=== PATIENT | female | born 1955 | race African-American/Black ===

== ENCOUNTER 2021-09-09 08:04 | Inpatient (IN) | payer OTHER, MEDICAID ==
[~2021-09-09] VITALS: Ht 160 cm; Wt 73.0 kg
[~2021-09-09 08:04] MED LIST: APIX5TAB PO; ASPI-1073 PO; EMPA25TA PO; HYDR-4009 MT; METF-873 PO; NIFE90TA2 PO; NITR0.4T49 SL; OMEP20CA14 PO; ONDA4TAB5 PO
[2021-09-09 09:13] LABS: BASOPHILS % 0.4 % (0.0-2.0); EOSINOPHILS % 1.8 % (0.0-5.0); HEMATOCRIT. 39.4 % (36.0-48.0); HEMOGLOBIN. 13.1 g/dL (12.0-16.0); MEAN CORPUSCULAR HEMOGLOBIN 30.3 pg (28.0-32.0); MEAN CORPUSCULAR VOLUME 90.9 fL (81.0-99.0); MEAN PLATELET VOLUME 8.7 fl (7.4-10.4); MONOCYTES % 7.9 % (2.0-8.0); NEUTROPHILS % 71.9 % (40.0-76.0); PLATELET 249 x1000/uL (130-400); RED BLOOD CELL COUNT 4.34 mill/uL (4.2-5.4); RED CELL DISTRIBUTION WIDTH 14.8 % (11.6-14.6)
[2021-09-09 09:20] LABS: CHLORIDE 109 mEq/L (98-107)
[2021-09-09] MEDS ORDERED: HYDROCODONE/ACETAMINOPHEN 5/325MG TABLET PO ONE (10:30)
[2021-09-09 11:27] LABS: CLARITY URINE CLEAR (CLEAR); COLOR URINE YELLOW (YELLOW); KETONES URINE NEGATIVE (NEGATIVE); LEUKOCYTE ESTERASE URINE NEGATIVE (NEGATIVE); NITRITE URINE NEGATIVE (NEGATIVE); OCCULT BLOOD URINE TRACE (NEGATIVE); PROTEIN URINE NEGATIVE (NEGATIVE); SPECIFIC GRAVITY URINE 1.024 (1.005-1.030)
[2021-09-09] MEDS ORDERED: ASPIRIN 81MG TABLET PO ONE (11:30)
[2021-09-09] MEDS ORDERED: MORPHINE SULFATE 4 MG/ML CPJ (NOT FOR IM USE) IV STA (12:46)
[2021-09-09] MEDS ORDERED: ONDANSETRON HCL 4MG/2ML INJ IV STA (12:46)
[2021-09-09] MEDS ORDERED: ENOXAPARIN 60MG/0.6ML SYR SUBCUT NR (13:30)
[2021-09-09] MEDS: AMLODIPINE 5MG TABLET PO SCH (15:15)
[2021-09-09 17:09] VITALS: BP 156/61
[2021-09-09 17:40] VITALS: BP 156/61
[2021-09-09] MEDS: INSULIN LISPRO 100 UNITS/ML SUBCUT SCH ×2 (17:50→21:00)
[2021-09-09] MEDS ORDERED: IPRATROPIUM/ALBUTEROL 0.5-3(2.5)MG/3ML NEB HHN PRN (18:00)
[2021-09-09] MEDS ORDERED: DEXTROSE 50% WATER 50ML SYRINGE IV PRN (18:00)
[2021-09-09] MEDS ORDERED: CLONIDINE 0.1MG TABLET PO PRN (18:00)
[2021-09-09] MEDS: BLOOD SUGAR DIAGNOSTIC STRIP TEST SCH ×2 (18:07→21:49)
[2021-09-09] MEDS ORDERED: NALOXONE HCL 0.4MG/ML VIAL IV PRN (18:30)
[2021-09-09] MEDS: MORPHINE SULFATE 2 MG/ML CPJ (NOT FOR IM USE) IV PRN (18:42)
[2021-09-09 20:00] VITALS: BP 132/73
[2021-09-10] VITALS: BP 128/57
[2021-09-10] MEDS: MORPHINE SULFATE 2 MG/ML CPJ (NOT FOR IM USE) IV PRN ×5 (01:02→22:48)
[2021-09-10] MEDS: ONDANSETRON HCL 4MG/2ML INJ IV PRN ×2 (01:02→20:51)
[2021-09-10 04:00] VITALS: BP 143/68
[2021-09-10] MEDS ORDERED: METO-539 PO (04:03)
[2021-09-10] MEDS ORDERED: ATOR40TA70 PO (04:03)
[2021-09-10] MEDS ORDERED: FURO20TA4 PO (04:03)
[2021-09-10] MEDS: ACETAMINOPHEN 325MG TABLET PO PRN (05:02)
[2021-09-10] MEDS: SODIUM CHLORIDE 0.45% 1,000 ML IV SCH ×3 (05:03→22:48)
[2021-09-10] MEDS: BLOOD SUGAR DIAGNOSTIC STRIP TEST SCH ×4 (06:44→20:51)
[2021-09-10] MEDS: INSULIN LISPRO 100 UNITS/ML SUBCUT SCH ×4 (07:50→20:50)
[2021-09-10 08:05] VITALS: BP 128/50
[2021-09-10] MEDS: AMLODIPINE 5MG TABLET PO SCH (08:06)
[2021-09-10] MEDS: ASPIRIN 81MG TABLET PO SCH (08:06)
[2021-09-10 12:00] VITALS: BP 141/58
[2021-09-10] MEDS ORDERED: ENOXAPARIN 60MG/0.6ML SYR SUBCUT NR (14:30)
[2021-09-10 16:00] VITALS: BP 117/57
[2021-09-10 18:54] LABS: *AMPHETAMINES SCREEN URINE NEGATIVE (NEGATIVE); *BARBITURATES SCREEN URINE NEGATIVE (NEGATIVE); *BENZODIAZEPINES SCREEN URINE NEGATIVE (NEGATIVE); *COCAINE SCREEN URINE NEGATIVE (NEGATIVE); CANNABINOID URINE SCREEN NEGATIVE (NEGATIVE); METHADONE URINE SCREEN NEGATIVE (NEGATIVE); OPIATES URINE SCREEN PRESUMTIVE POSITIVE (NEGATIVE); PHENCYCLIDINE URINE SCREEN NEGATIVE (NEGATIVE)
[2021-09-10 19:42] LABS: BASOPHILS % 0.4 % (0.0-2.0); EOSINOPHILS % 1.7 % (0.0-5.0); HEMATOCRIT. 35.2 % (36.0-48.0); HEMOGLOBIN. 11.7 g/dL (12.0-16.0); LYMPHOCYTES % 29.2 % (20.0-50.0); MEAN CORPUSCULAR HEMOGLOBIN 30.1 pg (28.0-32.0); MEAN CORPUSCULAR VOLUME 90.2 fL (81.0-99.0); MEAN PLATELET VOLUME 8.5 fl (7.4-10.4); MONOCYTES % 10.2 % (2.0-8.0); NEUTROPHILS % 58.5 % (40.0-76.0); PLATELET 207 x1000/uL (130-400); RED CELL DISTRIBUTION WIDTH 14.7 % (11.6-14.6)
[2021-09-10 19:56] LABS: CHLORIDE 110 mEq/L (98-107)
[2021-09-10 20:00] VITALS: BP 125/95
[2021-09-10] MEDS: OMEPRAZOLE 20MG CAPSULE EXTENDED RELEASE PO SCH (22:47)
[2021-09-11] VITALS: BP 147/60
[2021-09-11 04:00] VITALS: BP 135/55
[2021-09-11] MEDS: MORPHINE SULFATE 2 MG/ML CPJ (NOT FOR IM USE) IV PRN ×2 (05:16→12:50)
[2021-09-11] MEDS: SODIUM CHLORIDE 0.45% 1,000 ML IV SCH ×3 (05:20→22:00)
[2021-09-11] MEDS: ONDANSETRON HCL 4MG/2ML INJ IV PRN ×2 (05:24→11:22)
[2021-09-11] MEDS: OMEPRAZOLE 20MG CAPSULE EXTENDED RELEASE PO SCH (06:45)
[2021-09-11] MEDS: BLOOD SUGAR DIAGNOSTIC STRIP TEST SCH ×4 (06:45→21:19)
[2021-09-11] MEDS ORDERED: NITROGLYCERIN 50MCG/ML 10ML VIAL (CATH LAB) IV ONE (07:32)
[2021-09-11] MEDS ORDERED: NICARDIPINE 100MCG/ML 10ML VIAL (CATH LAB) IV ONE (07:32)
[2021-09-11] MEDS: INSULIN LISPRO 100 UNITS/ML SUBCUT SCH ×4 (07:50→21:00)
[2021-09-11 08:18] VITALS: BP 156/64
[2021-09-11] MEDS: AMLODIPINE 5MG TABLET PO SCH ×2 (09:00→09:34)
[2021-09-11] MEDS: ASPIRIN 81MG TABLET PO SCH (09:34)
[2021-09-11 10:12] LABS: BASOPHILS % 0.3 % (0.0-2.0); EOSINOPHILS % 1.9 % (0.0-5.0); HEMATOCRIT. 38.1 % (36.0-48.0); HEMOGLOBIN. 12.7 g/dL (12.0-16.0); LYMPHOCYTES % 23.7 % (20.0-50.0); MEAN CORPUSCULAR HEMOGLOBIN 30.1 pg (28.0-32.0); MEAN CORPUSCULAR VOLUME 90.3 fL (81.0-99.0); MONOCYTES % 10.2 % (2.0-8.0); NEUTROPHILS % 63.9 % (40.0-76.0); PLATELET 193 x1000/uL (130-400); RED BLOOD CELL COUNT 4.22 mill/uL (4.2-5.4); RED CELL DISTRIBUTION WIDTH 14.7 % (11.6-14.6)
[2021-09-11] MEDS ORDERED: NITROGLYCERIN 0.4MG TABLET SL SL NR (10:15)
[2021-09-11 10:20] LABS: CHLORIDE 109 mEq/L (98-107)
[2021-09-11 10:28] LABS: HDL CHOLESTEROL 61 mg/dL (40-59); LDL CHOLESTEROL 74 mg/dL (5-100)
[2021-09-11] MEDS: ACETAMINOPHEN 325MG TABLET PO PRN (11:22)
[2021-09-11 11:56] VITALS: BP 160/62
[2021-09-11] MEDS ORDERED: HEPARIN 1000 UNITS/ML 10ML ONE (13:22)
[2021-09-11] MEDS ORDERED: IODIXANOL 320MG/ML 100 ML BOTTLE IV ONE (13:22)
[2021-09-11] MEDS ORDERED: FENTANYL CITRATE/PF 50MCG/ML 2ML VIAL ONE (13:22)
[2021-09-11] MEDS ORDERED: MIDAZOLAM HCL 2 MG/2 ML VIAL ONE (13:23)
[2021-09-11] MEDS ORDERED: LIDOCAINE HCL 1% 10 MG/ML 10ML VIAL ONE (13:23)
[2021-09-11] MEDS ORDERED: ATROPINE SULFATE 1MG/10ML SYR IV PRN (14:45)
[2021-09-11] MEDS ORDERED: ACETAMINOPHEN 325MG TABLET PO PRN (14:45)
[2021-09-11] MEDS ORDERED: SODIUM CHLORIDE 0.45% 1,000 ML IV ONE (15:00)
[2021-09-11 17:00] VITALS: BP 122/46
[2021-09-11] MEDS: HYDROCODONE/ACETAMINOPHEN 5/325MG TABLET PO PRN ×2 (18:02→22:14)
[2021-09-11 20:00] VITALS: BP 134/54
[2021-09-12] VITALS: BP 138/52
[2021-09-12] MEDS: HYDROCODONE/ACETAMINOPHEN 5/325MG TABLET PO PRN ×3 (02:22→12:17)
[2021-09-12 04:00] VITALS: BP 157/67
[2021-09-12] MEDS: SODIUM CHLORIDE 0.45% 1,000 ML IV SCH (06:00)
[2021-09-12] MEDS: BLOOD SUGAR DIAGNOSTIC STRIP TEST SCH ×2 (07:20→12:13)
[2021-09-12] MEDS: INSULIN LISPRO 100 UNITS/ML SUBCUT SCH ×2 (07:50→12:19)
[2021-09-12 08:00] VITALS: BP 145/46
[2021-09-12] MEDS: AMLODIPINE 5MG TABLET PO SCH (08:57)
[2021-09-12] MEDS: ASPIRIN 81MG TABLET PO SCH (08:57)
[2021-09-12] MEDS ORDERED: FAMOTIDINE 20MG TABLET PO SCH (09:00)
[2021-09-12 09:40] LABS: CHLORIDE 109 mEq/L (98-107)
[2021-09-12 12:00] VITALS: BP 153/60
[2021-09-12] MEDS ORDERED: APIXABAN 5 MG TABLET PO SCH (13:00)
[2021-09-12 13:57] VITALS: BP 153/60
[2021-09-12] MEDS ORDERED: APIX5TAB MT (14:27)
[2021-09-12] MEDS ORDERED: ATORVASTATIN CALCIUM 40MG TABLET PO SCH (21:00)
== END 2021-09-12 15:39 | disposition home or self-care (01) | DRG 287 ==
LOC: ER 08:24 → 6WST 12:30 → EDBEDREQTM 12:33 → EDBEDREQ 12:33 → ENRESERV 14:54
PROVIDERS: ADMIT Internal Medicine; ATTEND Internal Medicine
PROC: B2111ZZ Fluoroscopy of Multiple Coronary Arteries using Low Osmolar Contrast (ICD-10-PCS; principal; 2021-09-11)
PROC: 4A023N7 Measurement of Cardiac Sampling and Pressure, Left Heart, Percutaneous Approach (ICD-10-PCS; 2021-09-11)
DX: I25.10 Atherosclerotic heart disease of native coronary artery without angina pectoris (principal); I82.512 Chronic embolism and thrombosis of left femoral vein; E11.9 Type 2 diabetes mellitus without complications; E78.5 Hyperlipidemia, unspecified; I10 Essential (primary) hypertension; Z20.822 Contact with and (suspected) exposure to COVID-19; G89.29 Other chronic pain; D25.9 Leiomyoma of uterus, unspecified; K44.9 Diaphragmatic hernia without obstruction or gangrene; Z79.82 Long term (current) use of aspirin; Z79.84 Long term (current) use of oral hypoglycemic drugs; Z79.01 Long term (current) use of anticoagulants; Z88.8 Allergy status to other drugs, medicaments and biological substances; Z95.1 Presence of aortocoronary bypass graft; Z79.899 Other long term (current) drug therapy; Z80.42 Family history of malignant neoplasm of prostate; Z82.49 Family history of ischemic heart disease and other diseases of the circulatory system
CPT/HCPCS: 36415; 71045; 80048; 80053; 80061; 80305; 81003; 82962; 83036; 83880; 84484; 85025; 87426; 93005; 93459; 93970; 99291; C1769; C1887; C1893; J1644; J1650; J2250; J2270; J2405; J3010; J3490; Q9967

== ENCOUNTER 2021-10-10 10:13 | Inpatient (IN) | payer OTHER, MEDICAID ==
[~2021-10-10] VITALS: Ht 157.5 cm; Wt 70.8 kg
[~2021-10-10 10:13] MED LIST changes: -APIXABAN 5 MG TABLET PO SCH; -ASPIRIN 81MG EC TABLET PO SCH; -ATORVASTATIN CALCIUM 40MG TABLET PO SCH; -BLOOD SUGAR DIAGNOSTIC STRIP TEST SCH; -DEXTROSE 50% WATER 50ML SYRINGE IV PRN; -EMPA10TA MT; -FUROSEMIDE 20MG TABLET PO SCH; -HYDROCODONE/ACETAMINOPHEN 5/325MG TABLET PO PRN; -INSULIN LISPRO 100 UNITS/ML SUBCUT SCH; -METOPROLOL TARTRATE 50MG TABLET PO SCH; -MORPHINE SULFATE 2 MG/ML CPJ (NOT FOR IM USE) IV PRN; -NIFEDIPINE XL 90MG TAB PO SCH; -NITROGLYCERIN 0.4MG TABLET SL SL PRN; -NITROGLYCERIN 0.4MG TABLET SL SL SCH; -OMEP40CA20 MT; -OMEPRAZOLE 20MG CAPSULE EXTENDED RELEASE PO SCH; -ONDANSETRON HCL 4MG/2ML INJ IV PRN; -POTASSIUM CHLORIDE 20MEQ TABLET SR PO NR; -TIZANIDINE HCL 2MG TABLET PO SCH
[2021-10-10] MEDS ORDERED: MORPHINE SULFATE 4 MG/ML CPJ (NOT FOR IM USE) IV ONE ×2 (17:15→21:15)
[2021-10-10] MEDS ORDERED: MORPHINE SULFATE 4 MG/ML CPJ (NOT FOR IM USE) IV SCH (18:00)
[2021-10-10 18:03] LABS: BASOPHILS % 0.2 % (0.0-2.0); EOSINOPHILS % 0.5 % (0.0-5.0); HEMATOCRIT. 41.3 % (36.0-48.0); HEMOGLOBIN. 13.7 g/dL (12.0-16.0); LYMPHOCYTES % 20.2 % (20.0-50.0); MEAN CORPUSCULAR HEMOGLOBIN 30.5 pg (28.0-32.0); MEAN CORPUSCULAR VOLUME 92.2 fL (81.0-99.0); MEAN PLATELET VOLUME 8.3 fl (7.4-10.4); NEUTROPHILS % 70.1 % (40.0-76.0); PLATELET 307 x1000/uL (130-400); RED BLOOD CELL COUNT 4.48 mill/uL (4.2-5.4); RED CELL DISTRIBUTION WIDTH 15.6 % (11.6-14.6)
[2021-10-10 18:08] LABS: CHLORIDE 110 mEq/L (98-107)
[2021-10-10] MEDS ORDERED: ASPIRIN 325MG TABLET PO ONE (20:15)
[2021-10-10] MEDS ORDERED: NITROGLYCERIN 0.4MG TABLET SL SL ONE (20:15)
[2021-10-10] MEDS ORDERED: ASPIRIN 325MG TABLET PO NR (22:15)
[2021-10-10] MEDS ORDERED: NITROGLYCERIN 0.4MG TABLET SL SL NR (22:15)
[2021-10-11] MEDS ORDERED: HYDROCODONE/ACETAMINOPHEN 10/325MG TABLET PO PRN (02:45)
[2021-10-11] MEDS ORDERED: NITROGLYCERIN 0.4MG TABLET SL SL SCH (02:45)
[2021-10-11] MEDS ORDERED: POTASSIUM CHLORIDE 20MEQ TABLET SR PO NR (02:45)
[2021-10-11] MEDS ORDERED: NITROGLYCERIN 0.4MG TABLET SL SL PRN (03:00)
[2021-10-11] MEDS ORDERED: DEXTROSE 50% WATER 50ML SYRINGE IV PRN (03:00)
[2021-10-11] MEDS: MORPHINE SULFATE 4 MG/ML CPJ (NOT FOR IM USE) IV PRN ×4 (03:03→22:13)
[2021-10-11] MEDS: ONDANSETRON HCL 4MG TABLET PO SCH ×4 (03:08→22:02)
[2021-10-11 03:12] VITALS: BP 133/49
[2021-10-11] MEDS: BLOOD SUGAR DIAGNOSTIC STRIP TEST SCH ×4 (06:13→21:06)
[2021-10-11 08:00] VITALS: BP 126/65
[2021-10-11] MEDS ORDERED: NIFEDIPINE XL 90MG TAB PO SCH (09:00)
[2021-10-11] MEDS ORDERED: ATORVASTATIN CALCIUM 40MG TABLET PO SCH (09:00)
[2021-10-11] MEDS: ASPIRIN 81MG EC TABLET PO SCH (09:29)
[2021-10-11] MEDS: OMEPRAZOLE 20MG CAPSULE EXTENDED RELEASE PO SCH (09:29)
[2021-10-11] MEDS: FUROSEMIDE 20MG TABLET PO SCH (09:29)
[2021-10-11] MEDS: METFORMIN HCL 500MG TABLET PO SCH ×2 (09:29→18:16)
[2021-10-11] MEDS: APIXABAN 5 MG TABLET PO SCH ×2 (09:30→18:17)
[2021-10-11] MEDS: INSULIN LISPRO 100 UNITS/ML SUBCUT SCH ×4 (09:39→21:00)
[2021-10-11] MEDS: METOPROLOL TARTRATE 50MG TABLET PO SCH ×2 (10:25→18:18)
[2021-10-11 12:00] VITALS: BP 130/66
[2021-10-11 12:59] LABS: CREATINE KINASE MB FRACTION 2.1 ng/mL (0.5-3.6)
[2021-10-11 16:00] VITALS: BP 142/66
[2021-10-11] MEDS ORDERED: EMPA10TA MT (18:05)
[2021-10-11] MEDS ORDERED: OMEP40CA20 MT (18:08)
[2021-10-11] MEDS: NIFEDIPINE XL 90MG TAB PO SCH (18:17)
[2021-10-11 20:00] VITALS: BP 115/61
[2021-10-11] MEDS: ATORVASTATIN CALCIUM 40MG TABLET PO SCH (22:03)
[2021-10-11 23:37] VITALS: BP 116/58
[2021-10-12 04:00] VITALS: BP 98/59
[2021-10-12] MEDS: MORPHINE SULFATE 4 MG/ML CPJ (NOT FOR IM USE) IV PRN (05:09)
[2021-10-12] MEDS: INSULIN LISPRO 100 UNITS/ML SUBCUT SCH ×4 (07:25→20:37)
[2021-10-12] MEDS: BLOOD SUGAR DIAGNOSTIC STRIP TEST SCH ×4 (07:25→20:50)
[2021-10-12] MEDS: METOPROLOL TARTRATE 50MG TABLET PO SCH ×2 (08:23→16:28)
[2021-10-12] MEDS: NIFEDIPINE XL 90MG TAB PO SCH (08:23)
[2021-10-12 08:25] VITALS: BP 84/51
[2021-10-12] MEDS ORDERED: NALOXONE HCL 0.4MG/ML VIAL IV PRN (09:15)
[2021-10-12] MEDS ORDERED: HYDROCODONE/ACETAMINOPHEN 5/325MG TABLET PO PRN (09:15)
[2021-10-12 09:16] LABS: BASOPHILS % 0.4 % (0.0-2.0); EOSINOPHILS % 1.4 % (0.0-5.0); HEMATOCRIT. 40.9 % (36.0-48.0); HEMOGLOBIN. 13.5 g/dL (12.0-16.0); LYMPHOCYTES % 23.4 % (20.0-50.0); MEAN CORPUSCULAR HEMOGLOBIN 30.2 pg (28.0-32.0); MEAN CORPUSCULAR VOLUME 91.3 fL (81.0-99.0); MEAN PLATELET VOLUME 8.4 fl (7.4-10.4); MONOCYTES % 12.5 % (2.0-8.0); NEUTROPHILS % 62.3 % (40.0-76.0); PLATELET 317 x1000/uL (130-400); RED BLOOD CELL COUNT 4.48 mill/uL (4.2-5.4); RED CELL DISTRIBUTION WIDTH 15.8 % (11.6-14.6)
[2021-10-12 09:18] LABS: CHLORIDE 103 mEq/L (98-107)
[2021-10-12] MEDS ORDERED: SODIUM CHLORIDE 0.9% 500 ML IV ONE (09:30)
[2021-10-12 09:34] LABS: AMYLASE 53 IU/L (25-115)
[2021-10-12] MEDS: METFORMIN HCL 500MG TABLET PO SCH ×2 (09:34→16:52)
[2021-10-12] MEDS: FUROSEMIDE 20MG TABLET PO SCH (09:34)
[2021-10-12] MEDS: ASPIRIN 81MG EC TABLET PO SCH (09:34)
[2021-10-12] MEDS: APIXABAN 5 MG TABLET PO SCH ×2 (09:34→16:40)
[2021-10-12] MEDS: OMEPRAZOLE 20MG CAPSULE EXTENDED RELEASE PO SCH (09:34)
[2021-10-12] MEDS: DIPHENHYDRAMINE 25MG CAPSULE PO PRN ×2 (09:41→16:40)
[2021-10-12] MEDS: ONDANSETRON HCL 4MG TABLET PO PRN (09:44)
[2021-10-12 10:24] VITALS: BP 110/52
[2021-10-12 12:00] VITALS: BP 108/50
[2021-10-12 16:00] VITALS: BP 109/58
[2021-10-12] MEDS: PREDNISONE 20MG TABLET PO SCH (16:41)
[2021-10-12] MEDS: OXYCODONE HCL/ACETAMINOPHEN 5/325MG TABLET PO PRN ×2 (18:03→22:29)
[2021-10-12 20:00] VITALS: BP 122/50
[2021-10-12] MEDS: ATORVASTATIN CALCIUM 40MG TABLET PO SCH (20:37)
[2021-10-13] VITALS: BP 105/58
[2021-10-13] MEDS: OXYCODONE HCL/ACETAMINOPHEN 5/325MG TABLET PO PRN ×5 (03:25→23:17)
[2021-10-13 04:00] VITALS: BP 108/61
[2021-10-13] MEDS: DIPHENHYDRAMINE 25MG CAPSULE PO PRN (05:51)
[2021-10-13] MEDS: BLOOD SUGAR DIAGNOSTIC STRIP TEST SCH ×4 (07:20→20:53)
[2021-10-13 08:11] VITALS: BP 111/60
[2021-10-13] MEDS: FUROSEMIDE 20MG TABLET PO SCH (08:33)
[2021-10-13] MEDS: OMEPRAZOLE 20MG CAPSULE EXTENDED RELEASE PO SCH (08:33)
[2021-10-13] MEDS: APIXABAN 5 MG TABLET PO SCH ×2 (08:33→17:27)
[2021-10-13] MEDS: METFORMIN HCL 500MG TABLET PO SCH ×2 (08:34→17:26)
[2021-10-13] MEDS: ONDANSETRON HCL 4MG TABLET PO PRN ×2 (08:34→18:59)
[2021-10-13] MEDS: ASPIRIN 81MG EC TABLET PO SCH (08:34)
[2021-10-13] MEDS: PREDNISONE 20MG TABLET PO SCH ×2 (08:36→17:27)
[2021-10-13] MEDS: INSULIN LISPRO 100 UNITS/ML SUBCUT SCH ×4 (08:37→21:00)
[2021-10-13] MEDS: METOPROLOL TARTRATE 50MG TABLET PO SCH (08:38)
[2021-10-13 12:15] VITALS: BP 127/67
[2021-10-13 14:33] LABS: CLARITY URINE CLEAR (CLEAR); COLOR URINE YELLOW (YELLOW); KETONES URINE NEGATIVE (NEGATIVE); LEUKOCYTE ESTERASE URINE NEGATIVE (NEGATIVE); NITRITE URINE NEGATIVE (NEGATIVE); OCCULT BLOOD URINE NEGATIVE (NEGATIVE); PH URINE 5.5 (4.5-8.0); PROTEIN URINE NEGATIVE (NEGATIVE); SPECIFIC GRAVITY URINE 1.018 (1.005-1.030)
[2021-10-13] MEDS ORDERED: NA PHOS,M-B/NA PHOS,DI-BA ENEMA 118ML PR NR (16:00)
[2021-10-13 16:22] VITALS: BP 123/49
[2021-10-13] MEDS ORDERED: SORBITOL 70% SOLN 30ML PO NR ×2 (16:34→20:30)
[2021-10-13] MEDS: METOPROLOL TARTRATE 25MG TABLET PO SCH (17:27)
[2021-10-13] MEDS ORDERED: ONDANSETRON HCL 4MG/2ML INJ IV PRN (19:30)
[2021-10-13 20:00] VITALS: BP 146/72
[2021-10-13] MEDS: ATORVASTATIN CALCIUM 40MG TABLET PO SCH (21:06)
[2021-10-14] VITALS: BP 121/62
[2021-10-14] MEDS: OXYCODONE HCL/ACETAMINOPHEN 5/325MG TABLET PO PRN ×2 (04:57→09:59)
[2021-10-14] MEDS: BLOOD SUGAR DIAGNOSTIC STRIP TEST SCH ×2 (07:30→12:20)
[2021-10-14 08:00] VITALS: BP 136/58
[2021-10-14] MEDS: PREDNISONE 20MG TABLET PO SCH (08:21)
[2021-10-14] MEDS: ASPIRIN 81MG EC TABLET PO SCH (08:21)
[2021-10-14] MEDS: METFORMIN HCL 500MG TABLET PO SCH (08:21)
[2021-10-14] MEDS: APIXABAN 5 MG TABLET PO SCH (08:21)
[2021-10-14] MEDS: FUROSEMIDE 20MG TABLET PO SCH (08:23)
[2021-10-14] MEDS: OMEPRAZOLE 20MG CAPSULE EXTENDED RELEASE PO SCH (08:23)
[2021-10-14] MEDS: METOPROLOL TARTRATE 25MG TABLET PO SCH (08:23)
[2021-10-14] MEDS: INSULIN LISPRO 100 UNITS/ML SUBCUT SCH ×2 (08:24→13:13)
[2021-10-14 10:26] LABS: CHLORIDE 104 mEq/L (98-107)
[2021-10-14 10:32] LABS: HEMOGLOBIN. 13.2 g/dL (12.0-16.0); MEAN CORPUSCULAR HEMOGLOBIN 30.7 pg (28.0-32.0); MEAN CORPUSCULAR VOLUME 92.7 fL (81.0-99.0); MEAN PLATELET VOLUME 8.2 fl (7.4-10.4); PLATELET 307 x1000/uL (130-400); RED BLOOD CELL COUNT 4.31 mill/uL (4.2-5.4); RED CELL DISTRIBUTION WIDTH 15.2 % (11.6-14.6)
[2021-10-14 12:00] VITALS: BP 138/59
[2021-10-14 15:14] VITALS: BP 138/57
[2021-10-15 14:19] LABS: PLATELET ESTIMATE NORMAL
== END 2021-10-14 17:18 | disposition home or self-care (01) | DRG 392 ==
LOC: ER 10:13 → 6WST 21:03 → UNDOADMIN 21:56 → 6WST 21:56 → EDBEDREQTM 21:57 → EDBEDREQ 21:57 → ENRESERV 22:03 → 6WST 10-11 01:36
PROVIDERS: ADMIT Internal Medicine; ATTEND Internal Medicine
DX: K59.00 Constipation, unspecified (principal); K21.9 Gastro-esophageal reflux disease without esophagitis; E11.9 Type 2 diabetes mellitus without complications; I25.10 Atherosclerotic heart disease of native coronary artery without angina pectoris; E87.6 Hypokalemia; I10 Essential (primary) hypertension; D25.9 Leiomyoma of uterus, unspecified; E78.5 Hyperlipidemia, unspecified; Z88.0 Allergy status to penicillin; Z88.8 Allergy status to other drugs, medicaments and biological substances; Z79.4 Long term (current) use of insulin; Z79.01 Long term (current) use of anticoagulants; Z95.1 Presence of aortocoronary bypass graft; Z86.718 Personal history of other venous thrombosis and embolism; K44.9 Diaphragmatic hernia without obstruction or gangrene; R00.1 Bradycardia, unspecified; L50.9 Urticaria, unspecified; M48.061 Spinal stenosis, lumbar region without neurogenic claudication
CPT/HCPCS: 36415; 71045; 74018; 74176; 80048; 80053; 81003; 82150; 82550; 82553; 82962; 83036; 83735; 83880; 84484; 85025; 93005; 93306; 93970; 99285; J1815; J2270; J2405; J7512; Q0162; Q0163

== ENCOUNTER → 2021-10-10 | Emergency (ER) | payer OTHER, MEDICAID ==
[~2021-10-10] VITALS: Ht 157.5 cm; Wt 70.8 kg
[~2021-10-10] MED LIST changes: +APIX5TAB MT; +APIXABAN 5 MG TABLET PO SCH; +ASPIRIN 81MG EC TABLET PO SCH; +ATOR40TA70 PO; +ATORVASTATIN CALCIUM 40MG TABLET PO SCH; +BLOOD SUGAR DIAGNOSTIC STRIP TEST SCH; +DEXTROSE 50% WATER 50ML SYRINGE IV PRN; +EMPA10TA MT; +FURO20TA4 PO; +FUROSEMIDE 20MG TABLET PO SCH; +HYDROCODONE/ACETAMINOPHEN 5/325MG TABLET PO PRN; +INSULIN LISPRO 100 UNITS/ML SUBCUT SCH; +METO-539 PO; +METOPROLOL TARTRATE 50MG TABLET PO SCH; +MORPHINE SULFATE 2 MG/ML CPJ (NOT FOR IM USE) IV PRN; +NIFEDIPINE XL 90MG TAB PO SCH; +NITROGLYCERIN 0.4MG TABLET SL SL PRN; +NITROGLYCERIN 0.4MG TABLET SL SL SCH; +OMEP40CA20 MT; +OMEPRAZOLE 20MG CAPSULE EXTENDED RELEASE PO SCH; +ONDANSETRON HCL 4MG/2ML INJ IV PRN; +POTASSIUM CHLORIDE 20MEQ TABLET SR PO NR; +TIZANIDINE HCL 2MG TABLET PO SCH
[2021-10-11 02:16] VITALS: BP 133/49
[2021-10-11 07:12] LABS: CREATINE KINASE MB FRACTION 2.4 ng/mL (0.5-3.6)
[2021-10-11 19:18] LABS: CREATINE KINASE MB FRACTION 1.6 ng/mL (0.5-3.6)
== END | disposition left against medical advice (07) ==
LOC: ER 10:13
DX: Z53.21 Procedure and treatment not carried out due to patient leaving prior to being seen by health care provider (principal)
CPT/HCPCS: 36415; 82550; 82553; 84484; 99283

== ENCOUNTER 2024-03-15 12:09 | Emergency (ER) | payer MEDICAID, MEDICARE, OTHER ==
[~2024-03-15] VITALS: Ht 167.6 cm; Wt 77.0 kg
[~2024-03-15 12:09] MED LIST changes: +EMPA10TA MT; -EMPA25TA PO; +METF-1149 PO; -METF-873 PO; -OMEP20CA14 PO; +OMEP40CA20 MT
[2024-03-15 12:14] VITALS: TEMP 98.2; O2SAT 96
[2024-03-15] MEDS ORDERED: CYCLOBENZAPRINE 10MG TABLET PO ONE (14:15)
[2024-03-15] MEDS ORDERED: HYDROCODONE/ACETAMINOPHEN 5/325MG TABLET PO ONE (14:15)
[2024-03-15] MEDS ORDERED: TOPUD MT (15:28)
[2024-03-15] MEDS ORDERED: LIDO700A15 TP (15:28)
[2024-03-15 16:04] VITALS: BP 163/80; PULSE 68; RESP 16
[2024-03-15] MEDS: LIDOCAINE 5% PATCH TOP SCH (16:04)
[2024-03-15] MEDS: CYCLOBENZAPRINE 10MG TABLET PO NR (16:04)
[2024-03-15] MEDS: HYDROCODONE/ACETAMINOPHEN 5/325MG TABLET PO NR (16:04)
[2024-03-15] MEDS ORDERED: CYCL5TAB3 MT (16:07)
[2024-03-15] MEDS ORDERED: NAPR-1176 MT (16:07)
[2024-03-15] MEDS ORDERED: OMEP20TA23 MT (16:07)
== END 2024-03-15 16:11 | disposition home or self-care (01) ==
LOC: ER 12:09
DX: M54.40 Lumbago with sciatica, unspecified side (principal); I25.2 Old myocardial infarction; I10 Essential (primary) hypertension; E11.9 Type 2 diabetes mellitus without complications; Z88.0 Allergy status to penicillin; Z88.3 Allergy status to other anti-infective agents; Z88.6 Allergy status to analgesic agent; Z79.82 Long term (current) use of aspirin; Z79.899 Other long term (current) drug therapy
CPT/HCPCS: 99283